=== PATIENT | male | born 1960 | race American Indian/Alaskan Native ===

== ENCOUNTER → 2017-08-12 | Outpatient (CLI) | payer OTHER ==
--- NOTE | 2017-08-12 12:38 | DIAGNOSTIC IMAGING REPORT ---
RIGHT KNEE 2 VIEWS HISTORY: Right KNEE PAIN COMPARISON: None. FINDINGS: No fractures within the right knee. Mild lateral subluxation of the tibia in relation to the femur. This is likely due to the long-standing degenerative change. Soft tissues are unremarkable. Trace knee effusion. Severe cartilage space narrowing within the medial and lateral compartments of the knee with [id number] articulation, subchondral sclerosis, and marginal osteophytes. There is also moderate cartilage space narrowing within the patellofemoral compartment with marginal osteophytes. IMPRESSION: 1. No fracture within the right knee. 2. Severe right knee osteoarthritis. Electronically signed by: Anurag Benavides M.D. 08/12/2017 12:37 PM Dictated Date/Time: 08/12/2017 12:35 PM
[2017-08-12 13:18] LABS: ALT/SGPT 34 U/L (12-78); BLOOD UREA NITROGEN 14 mg/dl (7-18); BUN/CREATININE RATIO 12.1 (10-20); CALCIUM 9.2 mg/dl (8.5-10.1); CARBON DIOXIDE 27 mmol/L (21-32); CHLORIDE 104 mmol/L (98-107); CHOLESTEROL 236 mg/dl (0-200); CREATININE 1.18 mg/dl (0.60-1.40); GLUCOSE 115 mg/dl (70-99); POTASSIUM 4.2 mmol/L (3.5-5.1); SODIUM 138 mmol/L (136-145); TRIGLYCERIDES 157 mg/dl (0-150); VERY LOW DENSITY LIPOPROT CALC 31 mg/dl
[2017-08-12 13:23] LABS: ALKALINE PHOSPHATASE 70 U/L (45-117); AST/SGOT 20 U/L (15-37); CHOLESTEROL/HDL RATIO 5.6; HDL CHOLESTEROL 42 mg/dl; LDL CHOLESTEROL CALCULATED 163 mg/dl
[2017-08-12 13:30] LABS: ESTIMATED AVERAGE GLUCOSE 134 mg/dl; HA1C FLAG Normal (Normal)
== END | disposition home or self-care (01) ==
LOC: C.LABBC 12:03
PROVIDERS: ATTEND Nurse Practitioner Adult Health
DX: M25.561 Pain in right knee (principal)

== ENCOUNTER → 2017-10-20 | Outpatient (CLI) | payer OTHER ==
[2017-10-20 14:00] LABS: ALBUMIN 3.9 gm/dl (3.4-5.0); BLOOD UREA NITROGEN 12 mg/dl (7-18); CALCIUM 9.3 mg/dl (8.5-10.1); CARBON DIOXIDE 27 mmol/L (21-32); CREATININE 1.22 mg/dl (0.60-1.40); GLUCOSE 117 mg/dl (70-99); POTASSIUM 4.2 mmol/L (3.5-5.1); SODIUM 137 mmol/L (136-145)
[2017-10-20 14:04] LABS: ALKALINE PHOSPHATASE 72 U/L (45-117); ALT/SGPT 44 U/L (12-78); AST/SGOT 23 U/L (15-37); CHOLESTEROL 174 mg/dl (0-200); LDL CHOLESTEROL CALCULATED 88 mg/dl; TOTAL PROTEIN 7.9 gm/dl (6.4-8.2)
== END | disposition home or self-care (01) ==
LOC: C.LABBC 10:38
PROVIDERS: ATTEND Nurse Practitioner Adult Health
DX: N18.2 Chronic kidney disease, stage 2 (mild) (principal); E78.5 Hyperlipidemia, unspecified

== ENCOUNTER 2020-07-20 11:26 | Inpatient (IN) ==
--- NOTE | 2020-07-20 12:15 | Emergency Department Note ---
History of Present Illness General Chief complaint: Urinary Symptoms Stated complaint: UNABLE TO VOID Time Seen by Provider: 07/20/20 12:05 Source: patient Mode of arrival: ambulatory Limitations: no limitations History of Present Illness Maximum Pain Intensity: 6 This patient comes in after having difficulty urinating. He said frequency of small amounts of urine is of blood in his urine. This been going on since Monday. He does have a horseshoe kidney and says he is never had any problems like this before he has had some prostate issues. He has had some subjective fevers. He has had some mid back pain not 1 side versus the other. No nausea vomiting. no known exposure to Covid. no respiratory symptoms or cough. No true trauma. Normal bowel movements. Home Medications Medication Instructions Recorded Confirmed Type telmisartan 20 mg tablet 20 mg PO HS #30 tab 09/03/19 07/20/20 Rx meloxicam 15 mg tablet 15 mg PO DAILY PRN #90 tab 09/26/19 07/20/20 Rx ergocalciferol (vitamin D2) 1,250 1,250 mcg PO WEEKLY #4 cap 09/27/19 07/20/20 Rx mcg (50,000 unit) capsule lancets 33 gauge #100 ea 03/26/20 07/20/20 Rx blood sugar diagnostic #100 ea 06/26/20 07/20/20 Rx blood-glucose meter #1 ea 06/26/20 07/20/20 Rx atorvastatin 20 mg PO HS 07/20/20 07/20/20 History cholecalciferol (vitamin D3) 50 mcg PO QAM 07/20/20 07/20/20 History losartan 50 mg PO QAM 07/20/20 07/20/20 History metformin 1,000 mg PO QDL 07/20/20 07/20/20 History tamsulosin 0.4 mg PO QAM 07/20/20 07/20/20 History Allergies Allergy/AdvReac Type Severity Reaction Status Date / Time No Known Drug Allergies Allergy Verified 07/20/20 15:44 Past Med/Surg History Medical History (Updated 07/20/20 @ 15:56 by Johnny Rodriguez MD) Acid reflux disease Allergic rhinitis Chronic kidney disease, stage II (mild) Dyslipidemia Essential hypertension Horseshoe kidney Osteoarthritis of knee Type 2 diabetes mellitus Vitamin D deficiency Surgical History History of colonoscopy History of tonsillectomy Family History Brother Cardiac disorder Myocardial infarction Other No family history of adverse response to anesthesia Denies family history of Ovarian cancer Prostate cancer Breast cancer Colorectal cancer Social History Smoking Status: Never smoker Cigarettes Per Day: 1; Second Hand Exposure: No; Hx Alcohol Use: No Hx Substance Use: No Preferred Language: Ukrainian Communication Ability: Effective Visual Impairment: No Limitations Hearing Ability: Normal Operational Intelligence Analyst Required: No Beliefs That Will Affect Care: None marital status: Current Living Situation: Family current occupational status: employed Feels Safe at Home: Yes Childhood Exposure to Second-Hand Smoke: No Dental Care, Regularly: Yes Physical Activity Frequency: Daily Seatbelt Use: always Sunscreen Use: No Assistive Devices: Glasses Review of Systems A total of 10 systems reviewed and were otherwise negative Physical Exam Vital Signs Vital Signs - 24 hr 07/20/20 11:34 07/20/20 13:30 07/20/20 15:01 Temperature 36.9 C Temperature Source Oral Pulse Rate 100 H 114 H Pulse Rate [Right Finger] 108 H Respiratory Rate 18 18 26 H Respiratory Effort / Characteristics Non-Labored Respiratory Depth Normal Blood Pressure 129/83 118/84 Blood Pressure [Right Arm] 144/72 H Blood Pressure Mean 98 92 Blood Pressure Mean [Right Arm] 96 Pulse Oximetry 96 97 Oxygen Delivery Method Sepsis Recent Fever Within 48 Hours No Sepsis New/Unexplained Change in Mental Status No Sepsis Action Taken by Nursing No Action Required 07/20/20 15:49 Temperature Temperature Source Pulse Rate Pulse Rate [Right Finger] 109 H Respiratory Rate 20 Respiratory Effort / Characteristics Respiratory Depth Blood Pressure Blood Pressure [Right Arm] 144/98 H Blood Pressure Mean Blood Pressure Mean [Right Arm] 113 Pulse Oximetry 98 Oxygen Delivery Method Room Air Sepsis Recent Fever Within 48 Hours Sepsis New/Unexplained Change in Mental Status Sepsis Action Taken by Nursing General: Well developed well nourished in no acute distress, breathing comfortably on room air. Normal speech HEENT: Normal cephalic atraumatic. Pupils are equal round and reactive to light. Extraocular movements are intact. Oropharynx is pink with moist mucous membranes. No swelling of the mouth lips or tongue. Neck: Supple with a midline trachea. No meningeal signs or stiffness, no JVD or bruits. No Stridor. Chest: Clear to auscultation bilaterally. No wheezes or rhonchi. No increased work of breathing. Heart: Regular rate and rhythm without murmurs or gallops. Abdomen: Soft nontender, nondistended without rebound guarding or rigidity. Extremities: No cyanosis clubbing or edema. No calf tenderness or assymetry Spine/Back. Non tender to palpation. No CVA tenderness Skin: Good turgor without rashes. Neurologic exam: Cranial nerves two through 12 are intact. Motor and sensation are intact and symmetrical throughout. Course Administered Medications Discontinued Medications Sodium Chloride (Nss 1000ml) 1,000 mls @ 999 mls/hr IV .Q1H1M ONE Stop: 07/20/20 15:27 Last Admin: 07/20/20 15:04 Dose: 999 mls/hr Documented by: [id number] Ceftriaxone Sodium (Rocephin) 2,000 mg in 70 mls @ 140 mls/hr IV NOW STA Stop: 07/20/20 14:56 Last Admin: 07/20/20 15:30 Dose: 140 mls/hr Documented by: [id number] Medical Decision Making Differential Diagnosis Urinary obstruction, kidney stone, prostatitis, BPH, electrolyte or metabolic ab normality, Medical Records Attestation: I reviewed the patient's medical records. Home Medications Current Medication List: was personally reviewed by me Laboratory Data Attestation: I reviewed the patient's lab results. Result diagrams: 07/20/20 13:34 07/20/20 13:34 Lab Results 07/20/20 07/20/20 07/20/20 Range/Units 13:34 13:34 15:07 WBC 23.06 H (4.8-10.8) K/uL RBC 4.50 L (4.7-6.1) M/uL Hgb 13.3 L (14.0-18.0) g/dL Hct 40.2 L (42-52) % MCV 89.3 (80-100) fL MCH 29.6 (25-34) pg MCHC 33.1 (32-36) g/dL RDW Std Deviation 43.6 (36.4-46.3) fL RDW Coeff of John 13.4 (11.5-14.5) % Plt Count 196 (130-400) K/uL MPV 11.9 H (7.4-10.4) fL Immature Gran % (Auto) 0.4 % Neut % (Auto) 88.7 % Lymph % (Auto) 3.3 % Winston % (Auto) 7.5 % Eos % (Auto) 0.0 % Baso % (Auto) 0.1 % Neut # (Auto) 20.47 H (1.4-6.5) K/uL Lymph # (Auto) 0.75 L (1.2-3.4) K/uL Winston # (Auto) 1.72 H (0.11-0.59) K/uL Eos # (Auto) 0.00 (0-0.5) K/uL Baso # (Auto) 0.02 (0-0.2) K/uL Immature Gran # (Auto) 0.10 H (0.00-0.02) K/uL Sodium 133 L (136-145) mmol/L Potassium 3.6 (3.5-5.1) mmol/L Chloride 101 (98-107) mmol/L Carbon Dioxide 23 (21-32) mmol/L Anion Gap 9.0 (3-11) BUN 19 H (7-18) mg/dl Creatinine 1.52 H (0.6-1.4) mg/dl Est Cr Clr Drug Dosing 48.4 ml/min Est GFR ( Amer) 58.1 Est GFR (Non-Af Amer) 50.1 BUN/Creatinine Ratio 12.3 (10-20) Glucose 162 H (70-99) mg/dl Lactate 3.6 H* (0.4-2.0) mmol/L Calcium 8.9 (8.5-10.1) mg/dl Total Bilirubin 1.0 (0.2-1) mg/dl AST 8 L (15-37) U/L ALT 20 (12-78) U/L Alkaline Phosphatase 61 (45-117) U/L Total Protein 7.6 (6.4-8.2) gm/dl Albumin 3.3 L (3.4-5.0) gm/dl Globulin 4.3 H (2.5-4.0) gm/dl Albumin/Globulin Ratio 0.8 L (0.9-2) Lipase 58 L (73-393) U/L Imaging Data Attestation: I personally reviewed and interpreted this imaging study as fo llows: Radiologist's Impression: CT SCAN OF THE ABDOMEN AND PELVIS WITHOUT IV CONTRAST CLINICAL HISTORY: Horseshoe kidney. Dysuria. COMPARISON STUDY: No priors. TECHNIQUE: CT scan of the abdomen and pelvis is performed from the lung bases to the proximal femora. Images are reviewed in the axial, sagittal, and coronal planes. IV contrast was not administered for this examination. A dose lowering technique was utilized adhering to the principles of ALARA. The examination is modestly degraded by motion artifact. CT DOSE: 487.72 mGycm FINDINGS: Lung bases: The heart is normal in size and without pericardial effusion. The lung bases are clear. There is a small hiatal hernia. Liver: The unenhanced liver is normal in size, contour, and attenuation. There is no intrahepatic biliary ductal dilatation. Gallbladder: Unremarkable. Spleen: Normal in size and attenuation. Pancreas: Unremarkable. Adrenal glands: Unremarkable. Kidneys: There is a horseshoe kidney. The unenhanced renal moieties show no evidence of hydronephrosis. There are no renal calculi identified. There is no evidence of contour deforming renal mass lesion. Mild perinephric stranding is noted. Abdominal vasculature: The abdominal aorta is normal in course and caliber. Bowel: There is mild to moderate colonic diverticulosis without CT evidence of acute diverticulitis. No bowel obstruction is seen. The appendix is well- visualized and normal. Peritoneum: There is no intraperitoneal free air or abdominal ascites. There is a fat-containing umbilical hernia. Lymphadenopathy: None. Pelvic viscera: The prostate gland is markedly enlarged and heterogeneous, measuring 6.6 cm in transverse diameter. There is median lobe hypertrophy. The bladder is relatively decompressed. The wall appears thickened and trabeculated indicating chronic outlet obstruction. There is significant pericystic inflammation. Skeletal structures: No lytic or blastic lesions are seen. IMPRESSION: 1. Marked prostatomegaly with evidence of chronic bladder outlet obstruction. 2. There is significant perinephric inflammation. Correlate clinically and with urinalysis for evidence of cystitis. 3. There is a horseshoe kidney. No renal calculi are identified and there is no hydronephrosis. 4. There is faint perinephric stranding. Ascending infection is not excluded, and again correlation with clinical findings and urinalysis will be required. 5. Mild to moderate colonic diverticulosis without CT evidence of acute diverticulitis. 6. Additional findings as above. ECG Data Attestation: I personally reviewed and interpreted this ECG as follows: MDM Narrative This patient comes in complaint of difficulty urinating. We did a bladder scan urinalysis blood work IV access was tablet she was hydrated normal saline. CAT scan was obtained without contrast as well. He was reassessed frequently. His bladder scan shows no significant urinary retention only 32 cc. I did order IV fluid bolus 1 L. His white count came back elevated at 23,000. His creatinine is also elevated at 1.5 he may have a postobstructive type component to this as well. I did order second IV normal saline bolus. The patient did have a CAT scan which showed chronic bladder outlet obstruction there is some inflammation of the bladder and also possibly the kidney. Given his white count is stable kidney I am concerned about a pyelonephritis and sepsis his lactic acid was elevated at 3.6. He was ordered Rocephin 2 g IV. I did consult the [facility] hospitalist to see him in the ER for these measures. Continuous cardiac monitoring: The patient had an order placed in EMR for continuous cardiac monitoring and was noted to be in sinus tachycardia. Impression & Plan Acute pyelonephritis, Horseshoe kidney, Bladder outlet obstruction, Sepsis, Acute renal insufficiency Discharge Plan Visit Data Chief Complaint: Urinary Symptoms Stated Complaint: UNABLE TO VOID ED Provider: Johnny Rodriguez Discharge Problem: Acute pyelonephritis, Horseshoe kidney, Bladder outlet obstruction, Sepsis, Acute renal insufficiency Forms Stand Alone Forms: My [facility] Prescriptions Prescriptions: No Action telmisartan 20 mg tablet 20 mg PO HS Qty: 30 RF: 0 Hold Instructions: replacement with Losartan ergocalciferol (vitamin D2) 1,250 mcg (50,000 unit) capsule 1,250 mcg PO WEEKLY Qty: 4 RF: 5 Hold Instructions: improved Vit D above 50 02/2020 (DME) OneTouch Verio test strips Strip See Rx Instructions .ROUTE .MEDSUPPLY Qty: 100 RF: 0 (DME) blood-glucose meter [OneTouch Verio Meter] Misc See Rx Instructions .ROUTE .MEDSUPPLY Qty: 1 RF: 0 meloxicam 15 mg tablet 15 mg PO DAILY PRN (Reason: pain) Qty: 90 RF: 0 (DME) lancets [OneTouch Delica Lancets] 33 gauge misc See Dose Instructions .ROUTE .MEDSUPPLY Qty: 100 RF: 3 losartan 50 mg tablet 50 mg PO QAM RF: 0 atorvastatin 20 mg tablet 20 mg PO HS RF: 0 tamsulosin 0.4 mg capsule 0.4 mg PO QAM RF: 0 metformin 1,000 mg tablet extended release 24hr 1,000 mg PO QDL RF: 0 cholecalciferol (vitamin D3) 50 mcg (2,000 unit) capsule 50 mcg PO QAM RF: 0 Discharge Problem: Sepsis Qualifiers: Sepsis type: sepsis due to unspecified organism Sepsis acute organ dysfunction status: unspecified Qualified Code(s): A41.9 - Sepsis, unspecified organism
[2020-07-20 13:40] LABS: Hematocrit (blood only) 40.2 % (42-52); Hemoglobin 13.3 g/dL (14.0-18.0); Mean Corpuscular Hemoglobin 29.6 pg (25-34); Mean Corpuscular Hgb Conc 33.1 g/dL (32-36); Mean Corpuscular Volume 89.3 fL (80-100); Mean Platelet Volume 11.9 fL (7.4-10.4); Platelet Count 196 K/uL (130-400); RDW Coefficient of Variation 13.4 % (11.5-14.5); RDW Standard Deviation 43.6 fL (36.4-46.3); White Blood Count 23.06 K/uL (4.8-10.8)
[2020-07-20 14:04] LABS: Basophils # (auto) 0.02 K/uL (0-0.2); Basophils % (auto) 0.1 %; Immature Granulocytes % (auto) 0.4 %; Lymphocytes # (auto) 0.75 K/uL (1.2-3.4); Lymphocytes % (auto) 3.3 %; Monocytes # (auto) 1.72 K/uL (0.11-0.59); Monocytes % (auto) 7.5 %; Neutrophils # (auto) 20.47 K/uL (1.4-6.5); Neutrophils % (auto) 88.7 %
[2020-07-20 14:05] LABS: Albumin Level 3.3 gm/dl (3.4-5.0); BUN Creatinine Ratio 12.3 (10-20); Calcium 8.9 mg/dl (8.5-10.1); Creatinine Clr Calc Pharmacy 48.4 ml/min; Est GFR (African American) 58.1; Est GFR (Non-African American) 50.1; Potassium 3.6 mmol/L (3.5-5.1)
[2020-07-20 14:08] LABS: Albumin Globulin Ratio 0.8 (0.9-2); Globulin 4.3 gm/dl (2.5-4.0); Total Protein 7.6 gm/dl (6.4-8.2)
--- NOTE | 2020-07-20 14:14 | CT Scan Report ---
CT SCAN OF THE ABDOMEN AND PELVIS WITHOUT IV CONTRAST CLINICAL HISTORY: Horseshoe kidney. Dysuria. COMPARISON STUDY: No priors. TECHNIQUE: CT scan of the abdomen and pelvis is performed from the lung bases to the proximal femora. Images are reviewed in the axial, sagittal, and coronal planes. IV contrast was not administered for this examination. A dose lowering technique was utilized adhering to the principles of ALARA. The ex amination is modestly degraded by motion artifact. CT DOSE: 487.72 mGycm FINDINGS: Lung bases: The heart is normal in size and without pericardial effusion. The lung bases are clear. T here is a small hiatal hernia. Liver: The unenhanced liver is normal in size, contour, and attenuation. There is no intrahepatic marcelle iary ductal dilatation. Gallbladder: Unremarkable. Spleen: Normal in size and attenuation. Pancreas: Unremarkable. Adrenal glands: Unremarkable. Kidneys: There is a horseshoe kidney. The unenhanced renal moieties show no evidence of hydronephrosi s. There are no renal calculi identified. There is no evidence of contour deforming renal mass lesion . Mild perinephric stranding is noted. Abdominal vasculature: The abdominal aorta is normal in course and caliber. Bowel: There is mild to moderate colonic diverticulosis without CT evidence of acute diverticulitis. No bowel obstruction is seen. The appendix is well-visualized and normal. Peritoneum: There is no intraperitoneal free air or abdominal ascites. There is a fat-containing umbi lical hernia. Lymphadenopathy: None. Pelvic viscera: The prostate gland is markedly enlarged and heterogeneous, measuring 6.6 cm in transv erse diameter. There is median lobe hypertrophy. The bladder is relatively decompressed. The wall deanna ears thickened and trabeculated indicating chronic outlet obstruction. There is significant pericysti c inflammation. Skeletal structures: No lytic or blastic lesions are seen. IMPRESSION: 1. Marked prostatomegaly with evidence of chronic bladder outlet obstruction. 2. There is significant perinephric inflammation. Correlate clinically and with urinalysis for eviden ce of cystitis. 3. There is a horseshoe kidney. No renal calculi are identified and there is no hydronephrosis. 4. There is faint perinephric stranding. Ascending infection is not excluded, and again correlation w ith clinical findings and urinalysis will be required. 5. Mild to moderate colonic diverticulosis without CT evidence of acute diverticulitis. 6. Additional findings as above. ACT 112: Negative or not required by law. Electronically signed by: Van Dowd M.D. 07/20/2020 2:12 PM
[2020-07-20] MEDS ORDERED: cefTRIAXone SODIUM 2,000 MG/70 ML BAG IV STA (14:27)
[2020-07-20] MEDS ORDERED: SODIUM CHLORIDE 0.9% 1000ML 1,000 ML IV ONE ×3 (14:27→16:18)
[2020-07-20 15:47] LABS: Appearance Urine Cloudy (Clear); Bacteria Urine Automated 2+ (Negative); Bilirubin Urine Negative (Negative); Blood Urine 3+ (Negative); Color Urine Dark Yellow; Epithelial Cell Urine Auto 20-30 /lpf (0-5); Glucose Urine UA Negative (Negative); Ketones Urine Negative (Negative); Leukocyte Esterase Urine 1+ (Negative); Nitrite Urine Positive (Negative); Protein Urine 3+ (Negative); Specific Gravity Urine 1.029 (1.000-1.030); Urobilinogen Urine Negative (Negative); WBC Urine Automated >30 /hpf (0-5)
[2020-07-20] MEDS ORDERED: VANCOMYCIN HCL 1,500 MG in SODIUM CHLORIDE 0.9% 500 ML IV ONE (16:10)
[2020-07-20] MEDS ORDERED: VANCOMYCIN CONSULT ACTIVE PRN (16:10)
[2020-07-20] MEDS ORDERED: MEROPENEM CONSULT ACITVE PRN (16:10)
--- NOTE | 2020-07-20 16:10 | History & Physical Report ---
Date of Service July 20, 2020 Assessment & Plan (1) Sepsis: NSS 3 L bolus Lactate 3.6, repeat pending Source pyelonephritis Follow up blood/urine cultures (2) Acute pyelonephritis: Ceftriaxone 2g given in ER. Given one kidney will broaden coverage to include ESBL with Vancomycin and Meropenem pending blood and urine cultures. Follow-up blood and urine cultures. (3) Bladder outlet obstruction: Chronic. Continue tamsulosin 0.4 mg p.o. daily. Bladder decompressed therefore no need for neff catheter at present. (4) BPH (benign prostatic hyperplasia): As above. (5) Horseshoe kidney: Notable history of this. (6) Type 2 diabetes mellitus: Hemoglobin A1c 6.3 in February. Repeat with a.m. labs. Hold Metformin. NovoLog sliding scale with correction factor only (7) Essential hypertension: Hold losartan (8) DVT prophylaxis: SCDs Admission and Anticipated Discharge Date Admission Date: 07/20/2020 History of Present Illness Chief Complaint: Fever, dysuria Primary Care Provider: Sheryl Franks MD Dianelys Juárez is a 59 year old male with horseshoe kidney and BPH who presents to the ER with fever, chills, dysuria, hematuria, suprapubic/lower back pain. He reports his symptoms started suddenly 2 days previously, no problems reported the day before this. Never had a UTI previously. Had BPH symptoms for many months but only recently started on tamsulosin 1 month ago. No history of prostatitis/kidney stones. Currently is very fatigued with reduced appetite. Suprapubic and back pain came on at the same time, at worst 10/10, currently 8/10, suprapubic pain worse on palpation and urination, better when lying still, no radiation. In the ER CT A/P without IV contrast concerning for acute pyelonephritis. No evidence of hydronephrosis. Chronic changes related to chronic outlet obstruction but bladder is decompressed without neff catheter placement. Allergies Allergy/AdvReac Type Severity Reaction Status Date / Time No Known Drug Allergies Allergy Verified 07/20/20 15:44 Home Medications Medication Instructions Recorded Confirmed Type telmisartan 20 mg tablet 20 mg PO HS #30 tab 09/03/19 07/20/20 Rx meloxicam 15 mg tablet 15 mg PO DAILY PRN #90 tab 09/26/19 07/20/20 Rx ergocalciferol (vitamin D2) 1,250 1,250 mcg PO WEEKLY #4 cap 09/27/19 07/20/20 Rx mcg (50,000 unit) capsule lancets 33 gauge #100 ea 03/26/20 07/20/20 Rx blood sugar diagnostic #100 ea 06/26/20 07/20/20 Rx blood-glucose meter #1 ea 06/26/20 07/20/20 Rx atorvastatin 20 mg PO HS 07/20/20 07/20/20 History cholecalciferol (vitamin D3) 50 mcg PO QAM 07/20/20 07/20/20 History losartan 50 mg PO QAM 07/20/20 07/20/20 History metformin 1,000 mg PO QDL 07/20/20 07/20/20 History tamsulosin 0.4 mg PO QAM 07/20/20 07/20/20 History Past Med/Surg History Medical History Acid reflux disease Allergic rhinitis Chronic kidney disease, stage II (mild) Dyslipidemia Essential hypertension Horseshoe kidney Osteoarthritis of knee Type 2 diabetes mellitus Vitamin D deficiency Surgical History History of colonoscopy History of tonsillectomy Family History Brother Cardiac disorder Myocardial infarction Other No family history of adverse response to anesthesia Denies family history of Ovarian cancer Prostate cancer Breast cancer Colorectal cancer Social History Smoking Status: Current every day smoker Cigarettes Per Day: 1; Second Hand Exposure: No; Do You Dip or Chew Tobacco: No; Hx Alcohol Use: No Hx Substance Use: No Preferred Language: Slovenian Communication Ability: Effective Visual Impairment: No Limitations Hearing Ability: Normal Channel Executive Required: No Beliefs That Will Affect Care: None marital status: Current Living Situation: Family current occupational status: employed Other Information That Helps Us Care for You: No Feels Safe at Home: Yes Safety Concerns: Feels Safe At This Time Childhood Exposure to Second-Hand Smoke: No Dental Care, Regularly: Yes Physical Activity Frequency: Daily Seatbelt Use: always Sunscreen Use: No Assistive Devices: None Review of Systems Review of Systems: All systems reviewed & are unremarkable except as noted in HPI & below Physical Exam Constitutional: well developed and well nourished; no acute distress Eyes: PERRL, conjunctivae normal, anicteric sclerae ENMT: external ear and nose normal, oropharynx normal Neck: trachea midline, no thyromegaly Respiratory: normal respiratory effort, lungs clear to auscultation Cardiovascular: Rate/Rhythm: regular rhythm and + tachycardic Heart Sounds: no murmur Vessels: + JVD Extremities: normal capillary refill; no calf tenderness and no pedal edema Gastrointestinal (Abdomen): Inspection/Auscultation: normal bowel sounds; abdomen not distended Percussion/Palpation: + abdomen tender (Suprapubic) and abdomen soft; no guarding and abdomen not rigid Musculoskeletal: no cyanosis or clubbing, extremities motor strength 5/5 Skin: no rashes, warm and dry Neurologic: moves all extremities and awake; no focal motor deficits and not confused Speech / Cognition: normal speech Motor/Sensory: no tremor Psychiatric: A+Ox3, euthymic affect Genitourinary: + CVA tenderness (bilateral) Results & Data Results & Data ([facility]) Vital Signs (Past 12 Hours) Vital Signs Temp Pulse Pulse Resp BP BP Pulse Ox 07/20/20 15:50 110 H 26 H 144/88 H 07/20/20 15:49 109 H 20 144/98 H 98 07/20/20 15:01 114 H 26 H 118/84 07/20/20 13:30 108 H 18 144/72 H 97 07/20/20 11:34 36.9 C 100 H 18 129/[address] SCAN OF THE ABDOMEN AND PELVIS WITHOUT IV CONTRAST IMPRESSION: 1. Marked prostatomegaly with evidence of chronic bladder outlet obstruction. 2. There is significant perinephric inflammation. Correlate clinically and with urinalysis for evidence of cystitis. 3. There is a horseshoe kidney. No renal calculi are identified and there is no hydronephrosis. 4. There is faint perinephric stranding. Ascending infection is not excluded, and again correlation with clinical findings and urinalysis will be required. 5. Mild to moderate colonic diverticulosis without CT evidence of acute diverticulitis. 6. Additional findings as above. Medications Administered ER medications given: NSS 2 L bolus Ceftriaxone 2 g IV ECG Indication: tachycardia Rate (beats per minute): 115 Rhythm: sinus tachycardia Findings: + other (Left ventricular hypertrophy) Comparison ECG Date: no prior available Code Status & VTE Plan Code Status Full VTE Prophylaxis Plan VTE Prophylaxis will be ordered: Yes Reason for no VTE drug order: Treatment not indicated PG Care Time/CCT Total # of Minutes Spent Total Time Spent with Patient: Total time spent is greater than 50% in coordination of care (as documented) at patient's floor/unit and/or counseling patient: Coding Level of Care Code 07797 Initial Inpt Care Lvl 3 Diagnoses Sepsis A41.9 Sepsis acute organ dysfunction status: unspecified Sepsis type: sepsis due to unspecified organism Acute pyelonephritis N10 Bladder outlet obstruction N32.0 BPH (benign prostatic hyperplasia) N40.0 Horseshoe kidney Q63.1 Type 2 diabetes mellitus E11.9 Essential hypertension I10 DVT prophylaxis Z29.9 (1) Sepsis Sepsis acute organ dysfunction status: unspecified Sepsis type: sepsis due to unspecified organism Qualified Code(s): A41.9 - Sepsis, unspecified organism
[2020-07-20] MEDS ORDERED: HYDROmorphone INJ 1 MG/ML SYRINGE IV STA (16:29)
[2020-07-20] MEDS ORDERED: MEROPENEM 1,000 MG in SYRINGE 0 ML IV ONE (16:30)
[2020-07-20] MEDS ORDERED: HYDROmorphone INJ 1 MG/ML SYRINGE ONE (16:32)
[2020-07-20] MEDS ORDERED: ACETAMINOPHEN 325 MG TAB PO PRN (18:50)
[2020-07-20] MEDS ORDERED: GLUCOSE 10 TABS/TUBE PO PRN (18:50)
[2020-07-20] MEDS ORDERED: ERGOCALCIFEROL 50,000 UNITS 1250 MCG CAP PO SCH (18:50)
[2020-07-20] MEDS ORDERED: DEXTROSE 50% 50 ML SYRINGE IV PRN (18:50)
[2020-07-20] MEDS ORDERED: ONDANSETRON INJ 2 MG/ML 2 ML VIAL IV PRN (18:50)
[2020-07-20] MEDS ORDERED: CARBOHYDRATES FOR HYPOGLYCEMIA PO PRN (18:50)
[2020-07-20] MEDS ORDERED: ALUMINUM/MAGNESIUM SUSP 30 ML UDC PO PRN (18:50)
[2020-07-20] MEDS ORDERED: POLYETHYLENE (MIRALAX) 17 GM PACK PO PRN (18:50)
[2020-07-20] MEDS ORDERED: GLUCAGON FOR INJ 1 MG VIAL SQ PRN (18:50)
[2020-07-20] MEDS ORDERED: GLUCOSE 40% GEL 15 GM TUBE PO PRN (18:50)
--- NOTE | 2020-07-20 19:23 | Pharmacy Report ---
Pharmacy Abx Initial Consult - Date of Service July 20, 2020 - Pharmacy Dosing Scope Date of Consult: 07/20 Consultation requested by: Dr. Green Pharmacy is consulted to initiate vancomycin/meropenem IV/PO dosing therapy, order appropriate labs and adjust drug dose/frequency. - Subjective The patient is a 59 year old M admitted on 07/20/20 16:16. - Objective Height: 5 ft 6 in Weight: 74.9 kg Vital Signs (Past 12hrs): Vital Signs Temp Pulse Pulse Resp BP BP BP 07/20/20 18:51 101 H 07/20/20 18:34 37.8 C H 103 H 20 118/74 07/20/20 17:19 37.9 C H 07/20/20 17:00 117 H 26 H 07/20/20 16:30 109 H 14 07/20/20 16:22 112 H 21 07/20/20 16:21 111 H 26 H 135/89 07/20/20 15:50 110 H 26 H 144/88 H 07/20/20 15:49 109 H 20 144/98 H 07/20/20 15:01 114 H 26 H 118/84 07/20/20 13:30 108 H 18 144/72 H 07/20/20 11:34 36.9 C 100 H 18 129/83 Pulse Ox 07/20/20 18:51 07/20/20 18:34 94 07/20/20 17:19 07/20/20 17:00 07/20/20 16:30 07/20/20 16:22 07/20/20 16:21 07/20/20 15:50 07/20/20 15:49 98 07/20/20 15:01 07/20/20 13:30 97 07/20/20 11:34 96 Lab Results (24hrs): Laboratory Tests (24 Hours) 07/20/20 07/20/20 13:34 13:34 WBC 23.06 H Neut # (Auto) 20.47 H Creatinine 1.52 H Est Cr Clr Drug Dosing 48.4 Micro Results: 07/20/20 15:30 Urine Culture - Pending Urine,Clean Catch 07/20/20 15:07 Aerobic Blood Culture - Pending Blood Anaerobic Blood Culture - Pending 07/20/20 14:55 Aerobic Blood Culture - Pending Blood Anaerobic Blood Culture - Pending - Assessment & Plan Assessment 59 year old M admitted with suspected pyelonephritis. Leukocytosis with left shift, Tmax in ER 37.9C, SCr elevated from baseline. Abdominal CT with "significant perinephric inflammation. Correlate clinically and with urinalysis for evidence of cystitis. 4. faint perinephric stranding. Ascending infection is not excluded." No previous micro available to review. Patient was given a dose of rocephin in the ED, admitting team starting meropenem and vancomycin empirically. Will discuss, ?hx of ESBL, UA nitrite positive would lean toward gram negative source, empiric vanco? Plan Vancomycin/meropenem for treatment of UTI Vancomycin IV * Estimated PK Parameters: Vd 0.7 L/kg, Bennett 0.0445 hr-1, t1/2 16hr * Loading dose: 1500 mg (20 mg/kg) * Maintenance dose: 1250 mg IV (16 mg/kg) every 18 hours * Goal trough level for 15-20 mcg/mL * Trough not currently ordered, will reassess in AM Meropenem dose adjusted to 500 mg q8H for CrCl est. ~49 ml/min. Pharmacy will continue to follow and will adjust dose/frequency as necessary. Thank you.
[2020-07-20] MEDS: ATORVASTATIN 20 MG TAB PO SCH (19:52)
[2020-07-20] MEDS: INSULIN ASPART 100 UNITS/ML 3 ML PEN SC SCH (20:09)
[2020-07-20] MEDS: LACTATED RINGER'S 1,000 ML IV SCH (20:15)
[2020-07-20] MEDS: MEROPENEM 500 MG in SYRINGE 0 ML IV SCH (23:55)
[2020-07-21] MEDS: ACETAMINOPHEN 500 MG TAB PO PRN ×2 (03:42→11:54)
[2020-07-21] MEDS: LACTATED RINGER'S 1,000 ML IV SCH ×2 (03:42→11:54)
[2020-07-21] MEDS: PHENAZOPYRIDINE HCL 200 MG TAB PO PRN ×3 (03:42→19:56)
[2020-07-21] MEDS ORDERED: traMADol HCL 50 MG TABLET PO STA (04:17)
[2020-07-21] MEDS ORDERED: traMADol HCL 50 MG TABLET ONE (04:20)
--- NOTE | 2020-07-21 04:45 | Communication Note ---
Date of Service: July 21, 2020 Notified overnight that pt was having significant dysuria. His Tylenol was increased to 1000mg q8h and pyridium TID was ordered. Notified later that it was still not helping his pain with urination. A one time dose of tramadol 50mg was ordered and a standing q4h order was placed. Nursing concerned that tramadol might not be adequate. A Dilaudid 0.5mg q3h order was placed for severe pain. Consider further review of pain meds in the AM. 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
[2020-07-21 05:18] LABS: Hematocrit (blood only) 35.2 % (42-52); Hemoglobin 11.6 g/dL (14.0-18.0); Mean Corpuscular Hemoglobin 29.5 pg (25-34); Mean Corpuscular Volume 89.6 fL (80-100); Mean Platelet Volume 12.2 fL (7.4-10.4); Platelet Count 179 K/uL (130-400); RDW Coefficient of Variation 13.4 % (11.5-14.5); RDW Standard Deviation 44.4 fL (36.4-46.3); Red Blood Count 3.93 M/uL (4.7-6.1); White Blood Count 22.88 K/uL (4.8-10.8)
[2020-07-21 05:51] LABS: BUN Creatinine Ratio 12.3 (10-20); Calcium 8.5 mg/dl (8.5-10.1); Creatinine Clr Calc Pharmacy 61.8 ml/min; Est GFR (African American) 78.1; Est GFR (Non-African American) 67.4; Potassium 3.4 mmol/L (3.5-5.1)
[2020-07-21 05:56] LABS: Basophils # (auto) 0.02 K/uL (0-0.2); Basophils % (auto) 0.1 %; Eosinophils # (auto) 0.01 K/uL (0-0.5); Immature Granulocytes # (auto) 0.09 K/uL (0.00-0.02); Immature Granulocytes % (auto) 0.4 %; Lymphocytes # (auto) 0.97 K/uL (1.2-3.4); Lymphocytes % (auto) 4.2 %; Monocytes # (auto) 1.27 K/uL (0.11-0.59); Monocytes % (auto) 5.6 %; Neutrophils # (auto) 20.52 K/uL (1.4-6.5); Neutrophils % (auto) 89.7 %; RBC Morphology Unremarkable
[2020-07-21 06:14] LABS: Estimated Average Glucose 134 mg/dl; Hemoglobin A1C 6.3 % (4.5-5.6)
[2020-07-21] MEDS: INSULIN ASPART 100 UNITS/ML 3 ML PEN SC SCH ×4 (07:21→20:58)
[2020-07-21] MEDS: MEROPENEM 500 MG in SYRINGE 0 ML IV SCH (08:03)
[2020-07-21] MEDS: CHOLECALCIFEROL 1,000 UNITS 25 MCG TAB PO SCH (08:03)
[2020-07-21] MEDS: VANCOMYCIN HCL 1,250 MG in SODIUM CHLORIDE 0.9% 250 ML IV SCH ×2 (08:03→08:06)
[2020-07-21] MEDS: TAMSULOSIN HCL 0.4 MG CAP PO SCH (08:03)
[2020-07-21] MEDS: traMADol HCL 50 MG TABLET PO PRN ×2 (11:46→18:27)
[2020-07-21] MEDS ORDERED: MEROPENEM 500 MG in SYRINGE 0 ML IV SCH (14:00)
[2020-07-21] MEDS: cefTRIAXone SODIUM 2,000 MG in DEXTROSE 5% 50 ML IV SCH (14:36)
--- NOTE | 2020-07-21 16:04 | Hospitalist Progress Note ---
Date of Service July 21, 2020 Assessment & Plan (1) Acute pyelonephritis: Seen on CT a/p on admission. - Continue ceftriaxone 2g given in ER. Admitting provider switched to vancomycin and meropenem, but I do not see any need for such broad abx. - Returned to ceftriaxone on 07/21. - Follow-up blood and urine cultures. (2) Acute renal insufficiency: Baseline Cr ~1.1. Admitted with Cr. up to 1.5, likely due to pyelonephritis and combination pre- & post-renal. - Down to 1.2 today with IV fluids. - Likely improve further with Feng inserted today. (3) Sepsis: Initial lactate 3.6. S/p fluids in the ED. Source pyelonephritis. - As above (4) Bladder outlet obstruction: Chronic. - Feng inserted on 07/21 for high PVR. - Continue tamsulosin 0.4 mg p.o. daily. - Will need voiding trial prior to discharge or close f/u with urology. (5) BPH (benign prostatic hyperplasia): As above. (6) Type 2 diabetes mellitus: Hemoglobin A1c 6.3% in this admission. - Hold Metformin. - NovoLog sliding scale with correction factor only - Sugars overall well- controlled today. 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 (8) Essential hypertension: BP presently 120/75. - Hold losartan (9) DVT prophylaxis: SCDs Admission and Anticipated Discharge Date Admission Date: July 20, 2020 Subjective No major complaints today. Reports no fevers/chills, chest pain, shortness of breath, abdominal pain, nausea, or vomiting. Physical Exam Constitutional: WD/WN, vitals as above Eyes: EOM intact bilaterally; no conjunctival abnormality ENMT: external ear and nose normal, oropharynx normal Neck: trachea midline, no thyromegaly normal visual inspection Respiratory: normal respiratory effort, lungs clear to auscultation no respiratory distress Cardiovascular: RRR, no murmur, no edema Gastrointestinal (Abdomen): Inspection/Auscultation: abdomen normal to inspection; abdomen not distended Musculoskeletal: no cyanosis or clubbing, extremities motor strength 5/5 Skin: no rashes, warm and dry Neurologic: moves all extremities and awake Psychiatric: Orientation: alert, oriented to person and cooperative Results & Data Results & Data ([facility]) Vital Signs (Past 12 Hours) Vital Signs Temp Pulse BP Pulse Ox 07/21/20 11:55 38.0 C H 121/75 96 07/21/20 08:00 36.8 C 76 122/68 95 PG Care Time/CCT Total # of Minutes Spent Total Time Spent with Patient: Total time spent is greater than 50% in coordination of care (as documented) at patient's floor/unit and/or counseling patient: Coding Level of Care Code 17792 Subseq Hosp Care Lvl 3 Diagnoses Acute pyelonephritis N10 Acute renal insufficiency N28.9 Sepsis A41.9 Sepsis acute organ dysfunction status: unspecified Sepsis type: sepsis due to unspecified organism Bladder outlet obstruction N32.0 BPH (benign prostatic hyperplasia) N40.0 Type 2 diabetes mellitus E11.9 Horseshoe kidney Q63.1 Essential hypertension I10 DVT prophylaxis Z29.9 (1) Sepsis Sepsis acute organ dysfunction status: unspecified Sepsis type: sepsis due to unspecified organism Qualified Code(s): A41.9 - Sepsis, unspecified organism
[2020-07-21] MEDS: HYDROmorphone INJ 0.5 MG/0.5 ML SYR IV PRN (16:53)
[2020-07-21] MEDS ORDERED: IBUPROFEN 600 MG TAB PO STA (18:51)
[2020-07-21] MEDS: ATORVASTATIN 20 MG TAB PO SCH (19:55)
--- NOTE | 2020-07-22 04:31 | Electrocardiogram Report ---
Test Reason : Blood Pressure : / mmHG Vent. Rate : 115 BPM Atrial Rate : 115 BPM P-R Int : 144 ms QRS Dur : 074 ms QT Int : 326 ms P-R-T Axes : 068 026 -39 degrees QTc Int : 450 ms Sinus tachycardia Left ventricular hypertrophy with repolarization abnormality Abnormal ECG No previous ECGs available Confirmed by Fareed Lewis ([id number]) on 07/22/2020 4:31:33 AM Referred By: REFERRED SELF Confirmed By:Fareed Lewis
[2020-07-22 05:08] LABS: Hematocrit (blood only) 33.3 % (42-52); Hemoglobin 11.1 g/dL (14.0-18.0); Mean Corpuscular Hemoglobin 29.8 pg (25-34); Mean Corpuscular Hgb Conc 33.3 g/dL (32-36); Mean Corpuscular Volume 89.3 fL (80-100); Mean Platelet Volume 12.1 fL (7.4-10.4); Platelet Count 187 K/uL (130-400); RDW Coefficient of Variation 13.2 % (11.5-14.5); RDW Standard Deviation 43.5 fL (36.4-46.3); Red Blood Count 3.73 M/uL (4.7-6.1); White Blood Count 18.79 K/uL (4.8-10.8)
[2020-07-22 05:35] LABS: BUN Creatinine Ratio 14.4 (10-20); Calcium 8.8 mg/dl (8.5-10.1); Creatinine Clr Calc Pharmacy 68.1 ml/min; Est GFR (African American) 87.8; Est GFR (Non-African American) 75.8; Magnesium 2.4 mg/dl (1.8-2.4); Potassium 3.5 mmol/L (3.5-5.1)
[2020-07-22] MEDS: CHOLECALCIFEROL 1,000 UNITS 25 MCG TAB PO SCH (08:42)
[2020-07-22] MEDS: INSULIN ASPART 100 UNITS/ML 3 ML PEN SC SCH ×4 (08:43→20:16)
[2020-07-22] MEDS: TAMSULOSIN HCL 0.4 MG CAP PO SCH (08:43)
[2020-07-22] MEDS: PHENAZOPYRIDINE HCL 200 MG TAB PO PRN ×3 (09:28→20:16)
[2020-07-22] MEDS: traMADol HCL 50 MG TABLET PO PRN (12:49)
[2020-07-22] MEDS: ACETAMINOPHEN 500 MG TAB PO PRN (16:34)
[2020-07-22] MEDS: cefTRIAXone SODIUM 2,000 MG in DEXTROSE 5% 50 ML IV SCH (16:38)
[2020-07-22] MEDS: ATORVASTATIN 20 MG TAB PO SCH (20:16)
--- NOTE | 2020-07-22 22:33 | Hospitalist Progress Note ---
Date of Service July 22, 2020 Assessment & Plan (1) Acute pyelonephritis: Seen on CT a/p on admission. - Continue ceftriaxone 2g given in ER. - will continue for another day, may try voiding trial in AM. - Follow-up blood and urine cultures. possible discharge in AM. (2) Acute renal insufficiency: Baseline Cr ~1.1. Admitted with Cr. up to 1.5, likely due to pyelonephritis and combination pre- & post-renal. - Down to 1.2 today with IV fluids. - Likely improve further with Feng inserted today. (3) Sepsis: Initial lactate 3.6. S/p fluids in the ED. Source pyelonephritis. - As above (4) Bladder outlet obstruction: Chronic. - Feng inserted on 07/21 for high PVR. - Continue tamsulosin 0.4 mg p.o. daily. - Will consider voiding trial prior to discharge or close f/u with urology. (5) BPH (benign prostatic hyperplasia): As above. (6) Type 2 diabetes mellitus: Hemoglobin A1c 6.3% in this admission. - Hold Metformin. - NovoLog sliding scale with correction factor only - Sugars overall well- controlled today. 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 (8) Essential hypertension: BP presently 120/75. - Hold losartan (9) DVT prophylaxis: SCDs Admission and Anticipated Discharge Date Admission Date: July 20, 2020 Subjective Patient reports having intermittent dysuria during the day Review of Systems Review of Systems: All systems reviewed & are unremarkable except as noted in HPI & below Physical Exam Physical Exam: Constitutional: WD/WN, vitals as above Eyes: EOM intact bilaterally; no conjunctival abnormality ENMT: external ear and nose normal, oropharynx normal Neck: trachea midline, no thyromegaly normal visual inspection Respiratory: normal respiratory effort, lungs clear to auscultation no respiratory distress Cardiovascular: RRR, no murmur, no edema Gastrointestinal (Abdomen): Inspection/Auscultation: abdomen normal to inspection; abdomen not distended Musculoskeletal: no cyanosis or clubbing, extremities motor strength 5/5 Skin: no rashes, warm and dry Neurologic: moves all extremities and awake Psychiatric: Orientation: alert, oriented to person and cooperative Results & Data Results & Data ([facility]) Vital Signs (Past 12 Hours) Vital Signs Temp Pulse Resp BP Pulse Ox 07/22/20 16:00 36.4 C L 96 H 20 118/67 97 07/22/20 12:00 36.8 C 88 16 120/78 97 PG Care Time/CCT Total # of Minutes Spent Total Time Spent with Patient: Total time spent is greater than 50% in coordination of care (as documented) at patient's floor/unit and/or counseling patient: Coding Level of Care Code 33997 Subseq Hosp Care Lvl 3 Diagnoses Acute pyelonephritis N10 Acute renal insufficiency N28.9 Sepsis A41.9 Sepsis acute organ dysfunction status: unspecified Sepsis type: sepsis due to unspecified organism Bladder outlet obstruction N32.0 BPH (benign prostatic hyperplasia) N40.0 Type 2 diabetes mellitus E11.9 Horseshoe kidney Q63.1 Essential hypertension I10 DVT prophylaxis Z29.9 (1) Sepsis Sepsis acute organ dysfunction status: unspecified Sepsis type: sepsis due to unspecified organism Qualified Code(s): A41.9 - Sepsis, unspecified organism
[2020-07-23] MEDS: traMADol HCL 50 MG TABLET PO PRN (00:16)
[2020-07-23] MEDS: HYDROmorphone INJ 0.5 MG/0.5 ML SYR IV PRN (02:21)
[2020-07-23] MEDS: ACETAMINOPHEN 500 MG TAB PO PRN (05:37)
[2020-07-23 05:59] LABS: Basophils # (auto) 0.02 K/uL (0-0.2); Basophils % (auto) 0.2 %; Eosinophils # (auto) 0.06 K/uL (0-0.5); Eosinophils % (auto) 0.5 %; Hematocrit (blood only) 32.7 % (42-52); Hemoglobin 11.1 g/dL (14.0-18.0); Immature Granulocytes # (auto) 0.13 K/uL (0.00-0.02); Immature Granulocytes % (auto) 1.2 %; Lymphocytes # (auto) 1.36 K/uL (1.2-3.4); Lymphocytes % (auto) 12.1 %; Mean Corpuscular Hgb Conc 33.9 g/dL (32-36); Mean Corpuscular Volume 88.4 fL (80-100); Mean Platelet Volume 11.4 fL (7.4-10.4); Monocytes # (auto) 1.03 K/uL (0.11-0.59); Monocytes % (auto) 9.2 %; Neutrophils # (auto) 8.65 K/uL (1.4-6.5); Neutrophils % (auto) 76.8 %; Platelet Count 254 K/uL (130-400); RDW Coefficient of Variation 13.1 % (11.5-14.5); RDW Standard Deviation 42.4 fL (36.4-46.3); White Blood Count 11.25 K/uL (4.8-10.8)
[2020-07-23 06:34] LABS: BUN Creatinine Ratio 11.4 (10-20); Calcium 8.9 mg/dl (8.5-10.1); Creatinine Clr Calc Pharmacy 65.7 ml/min; Est GFR (African American) 84.1; Est GFR (Non-African American) 72.5
[2020-07-23] MEDS: CHOLECALCIFEROL 1,000 UNITS 25 MCG TAB PO SCH (08:35)
[2020-07-23] MEDS: INSULIN ASPART 100 UNITS/ML 3 ML PEN SC SCH (08:35)
[2020-07-23] MEDS: TAMSULOSIN HCL 0.4 MG CAP PO SCH (08:35)
[2020-07-23] MEDS ORDERED: CEFDINIR 300 MG CAP PO STA (09:34)
[2020-07-23] MEDS ORDERED: POTASSIUM CHLORIDE CRTAB 20 MEQ TABCR PO STA (09:34)
--- NOTE | 2020-07-23 17:16 | Discharge Summary ---
Date of Service July 23, 2020 Admission HPI Per Admitting Provider Dianelys Juárez is a 59 year old male with horseshoe kidney and BPH who presents to the ER with fever, chills, dysuria, hematuria, suprapubic/lower back pain. He reports his symptoms started suddenly 2 days previously, no problems reported the day before this. Never had a UTI previously. Had BPH symptoms for many months but only recently started on tamsulosin 1 month ago. No history of prostatitis/kidney stones. Currently is very fatigued with reduced appetite. Suprapubic and back pain came on at the same time, at worst 10/10, currently 8/10, suprapubic pain worse on palpation and urination, better when lying still, no radiation. In the ER CT A/P without IV contrast concerning for acute pyelonephritis. No evidence of hydronephrosis. Chronic changes related to chronic outlet obstruction but bladder is decompressed without neff catheter placement. Principal Diagnosis acute pyelonephritis Discharge Exam Constitutional: WD/WN, vitals as above Eyes: EOM intact bilaterally; no conjunctival abnormality ENMT: external ear and nose normal, oropharynx normal Neck: trachea midline, no thyromegaly normal visual inspection Respiratory: normal respiratory effort, lungs clear to auscultation no respiratory distress Cardiovascular: RRR, no murmur, no edema Gastrointestinal (Abdomen): Inspection/Auscultation: abdomen normal to inspection; abdomen not distended Musculoskeletal: no cyanosis or clubbing, extremities motor strength 5/5 Skin: no rashes, warm and dry Neurologic: moves all extremities and awake Psychiatric: Orientation: alert, oriented to person and cooperative Discharge Data Allergies Allergy/AdvReac Type Severity Reaction Status Date / Time No Known Allergies Allergy Verified 07/23/20 16:42 Consultations 07/20/20 14:35 ED Decision to Admit Stat 07/23/20 09:50 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 - Treated for 3 doses of ceftriaxone 2g -Improved, no longer in sepsis -Ok to transition to PO antibiotics as patient has no fever. -due to BPH and urinary retention patient will be discharged with neff cath and will followup with urology as an outpatient in 1 week. Case was discussed with urology, and they agree with plan. (2) Acute renal insufficiency: Baseline Cr ~1.1. Admitted with Cr. up to 1.5, likely due to pyelonephritis and combination pre- & post-renal. -improved. (3) Sepsis: Initial lactate 3.6. S/p fluids in the ED. Source pyelonephritis. - As above (4) Bladder outlet obstruction: Chronic. - Neff inserted on 07/21 for high PVR. - Continue tamsulosin 0.4 mg p.o. daily. - Will consider voiding trial prior to discharge or close f/u with urology. (5) BPH (benign prostatic hyperplasia): As above. (6) Type 2 diabetes mellitus: Hemoglobin A1c 6.3% in this admission. - Hold Metformin. - NovoLog sliding scale with correction factor only - Sugars overall well- controlled today. 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 (8) Essential hypertension: BP presently 120/75. - Hold losartan (9) DVT prophylaxis: SCDs Total Time Total Time Spent Total Time Spent (In Minutes): 32 Total Time Includes: Examination of the Patient, Discharge Planning and Medication Reconciliation Discharge Plan Discharge Items Patient Disposition: Home - Self-Care Reason For Visit: UTI SEPSIS Discharge Diagnosis: UTI, sepsis Activity: Resume your previous activity Non-emergency contact: Primary Care Provider Call non-emergency contact if: you have any medication questions Follow-up/Referrals: Sheyrl Franks MD [Primary Care Provider] - Diet: Regular Addtl Attending Provider Instructions: You have been hospitalized for an acute medical problem. During your stay at [facility], we have made an effort to correct the problem that brought you to the hospital while keeping you as comfortable as possible. Medications were used to bring your condition under control and your discharge instructions will include directions for any medications you should take after leaving the hospital. Please make sure you see your Primary Care Provider as part of your follow up plan. Followup with PCP in 1-2 weeks. Followup with Urology in 1 week to remove neff Pending Studies at Discharge: No Stand-Alone Forms: My [facility] [employer], Smoking Cessation Medications and DC Order Prescriptions: New cefdinir 300 mg capsule 300 mg PO BID 10 Days Qty: 20 RF: 0 potassium chloride 10 mEq tablet extended release 10 meq PO BID Qty: 4 RF: 0 Continued ergocalciferol (vitamin D2) 1,250 mcg (50,000 unit) capsule 1,250 mcg PO WEEKLY Qty: 4 RF: 5 Hold Instructions: improved Vit D above 50 02/2020 (DME) OneTouch Verio test strips Strip See Rx Instructions .ROUTE .MEDSUPPLY Qty: 100 RF: 0 (DME) blood-glucose meter [OneTouch Verio Meter] Misc See Rx Instructions .ROUTE .MEDSUPPLY Qty: 1 RF: 0 (DME) lancets [OneTouch Delica Lancets] 33 gauge misc See Dose Instructions .ROUTE .MEDSUPPLY Qty: 100 RF: 3 losartan 50 mg tablet 50 mg PO QAM RF: 0 atorvastatin 20 mg tablet 20 mg PO HS RF: 0 tamsulosin 0.4 mg capsule 0.4 mg PO QAM RF: 0 metformin 1,000 mg tablet extended release 24hr 1,000 mg PO QDL RF: 0 cholecalciferol (vitamin D3) 50 mcg (2,000 unit) capsule 50 mcg PO QAM RF: 0 Discontinued telmisartan 20 mg tablet 20 mg PO HS Qty: 30 RF: 0 Hold Instructions: replacement with Losartan meloxicam 15 mg tablet 15 mg PO DAILY PRN (Reason: pain) Qty: 90 RF: 0 No Action phenazopyridine [Pyridium] 200 mg tablet 200 mg PO TID PRN (Reason: Pain while urinating) RF: 0 acetaminophen 500 mg tablet 1,000 mg PO Q8H PRN (Reason: Fever Or Pain) RF: 0 Discharge Orders: Discharge Order (Routine); Ordered 07/23/20 Ordered By: Vel Almonte/Other Patient Handouts: High Blood Sugar (Hyperglycemia), Hypoglycemia (Low Blood Sugar), Managing Type 2 Diabetes, Emptying and Cleaning Your ..., Indwelling Urinary Catheter Dc, Managing Diabetes: The A1C Test, Cefdinir capsules, Phenazopyridine tablets Admission Data Admit Date/Time: 07/20/20 16:16 Attending Provider: Vel Lam Admit Provider: Srini Green Primary Care Provider: Sheryl Franks V. Other Providers: Kojo Rankin Other Interventions: Discharge Summary Assessment (RN) Last Done: 07/23/20 10:54 Coding Level of Care Code D/C Day Management >30 mins Diagnoses Acute pyelonephritis N10 Acute renal insufficiency N28.9 Sepsis A41.9 Sepsis acute organ dysfunction status: unspecified Sepsis type: sepsis due to unspecified organism Bladder outlet obstruction N32.0 BPH (benign prostatic hyperplasia) N40.0 Type 2 diabetes mellitus E11.9 Horseshoe kidney Q63.1 Essential hypertension I10 DVT prophylaxis Z29.9
== END 2020-07-23 11:20 | disposition home or self-care (01) | DRG 872 ==
LOC: ED 11:26 → SUATTDRO 16:16 → 1E 16:16